=== PATIENT | female | born 2000 | race Two or more races ===

== ENCOUNTER 2018-10-09 16:45 | Outpatient (CLI) | payer SELFPAY ==
[2018-10-09 17:23] LABS: APPEARANCE,URINE SLIGHTLY-CLOUDY; BILIRUBIN,URINE NEGATIVE (NEGATIVE); COLOR,URINE YELLOW; GLUCOSE, URINE NEGATIVE (NEGATIVE); KETONES,URINE NEGATIVE (NEGATIVE); LEUKOCYTE ESTERASE,URINE NEGATIVE (NEGATIVE); NITRITE,URINE NEGATIVE (NEGATIVE); PROTEIN,URINE NEGATIVE (NEGATIVE); URINE SPECIFIC GRAVITY 1.021
[2018-10-09 17:39] LABS: URINE AMPHETAMINES SCREEN NEGATIVE; URINE BARBITURATES SCREEN NEGATIVE; URINE BENZODIAZEPINES SCREEN NEGATIVE; URINE COCAINE SCREEN NEGATIVE; URINE MARIJUANA (THC) SCREEN NEGATIVE; URINE METHADONE SCREEN NEGATIVE; URINE PHENCYCLIDINE SCREEN NEGATIVE
--- NOTE | 2018-10-09 18:50 | L&D Progress Notes ---
PROGRESS NOTES Datetime Report Generated by CPN: 10/09/2018 18:50 PROGRESS NOTE Impression Other: IUP @ 24w5d, Cramping, Light headed Procedures: Sterile Vag Exam Procedures- Other: Genprobe, Bedside u/s Plan Other: Anatomy U/s w/ Cervical Length Vital Signs : Reviewed; Within Normal Limits Vital Signs Comments: Bedside u/s; Fundal Height U-2 Comment: 18y G1 @ 24w5d by LMP and pt states consistent with a 12wk u/s, no records to confirm this but a good story. Records reviewed on patient's phone from my chart from [facility] noting that she had first trimester testing at 13wks with negative screen for Tri-21 and Tri-18. Patient presents today with complaints of cramping earlier in the day and decreased movement. Patient has since felt baby move since being on L_D. Pt denies any mucoid vaginal discharge, rectal pressure, LOF or vaginal spotting or bleeding. Patient's last visit with a provider was Aug. in [place]. Patient has been down from [place] for the last 3 weeks as patient is here with her . Patient states she will deliver in [place]. Patient's is active but pt is not on his [facility] yet. Pt desires to deliver at [place] as it is way closer to her home. Labs reviewed from patient's my chart on her phone and all labs are good except RPR not completed. Patient also has not had her anatomy ultrasound. Patient has not established care with provider in this area yet. Patient is not currently having complaints. Vaginal swabl collected. Speculum exam shows a slightly friable cervix. Discussed with patient that I am concerned that she has a significantly lagging fundal height without anatomy u/s and questionable cervical exam, concerning for cervical shortening. Will obtain official anatomy u/s and transvaginal cervical length and dictate follow up care based on results. VAGINAL EXAM Dilatation: cl Effacement: 65 Station: -2 Contractions: None LAST VAGINAL EXAM-NURSING Contractions: TOCO applied FETUS A FHR - Baseline: 140 Monitoring: External US : 24w5d SIGNATURE SIGNATURE: [id number] Signature: with User ID: [email or web address]
--- NOTE | 2018-10-09 19:32 | RADIOLOGY REPORT (SQ) ---
EXAM DESCRIPTION: U/S OB 14+ TA/1 GEST W/DOPPLER COMPLETED DATE/TIME: 10/09/2018 7:14 pm REASON FOR STUDY: full anatomy, questionable dates and limited care COMPARISON: None. TECHNIQUE: Static and Dynamic grayscale imaging performed of gravid uterus using transabdominal appr oach. Additional selected color Doppler and spectral images recorded. All stored on PACS. LIMITATIONS: Limited anatomy evaluation. FINDINGS: FETUSES SEEN:1 EGA: 24 weeks 0 days Calculated using BPD,FL,HC,AC documented on images. No significant discrepancy with clinical dates. ETTA: 01/29/2019 EFW: 588 g grams PERCENTILE: 26 SHANIQUA: 11.1 cm PLACENTA: Posterior low-lying placenta, tip approximately 1.8 cm from the internal cervical os. PRESENTATION: Cephalic. ANATOMY: HEART RATE: 158 beats per minute. FOUR CHAMBER HEART: Visualized. THREE VESSEL CORD: Yes. CORD INSERTION: Visualized. KIDNEYS AND BLADDER: Visualized. Appear normal. STOMACH: Visualized. Appears normal. SPINE: Incompletely visualized. BRAIN AND LATERAL VENTRICLES: Poorly visualized. OTHER: No other significant finding. MATERNAL ADNEXA: Maternal ovaries not visualized. CERVICAL LENGTH: 4.3 center Closed. OTHER: No other significant finding. IMPRESSION: LIVING INTRAUTERINE . ESTIMATED GESTATIONAL AGE 24 weeks 0 days. Posterior low-lying placenta, tip approximately 1.8 cm from the internal cervical os. Poorly visualized intracranial anatomy. Incompletely visualized spine -pelvis. Trimester of : Second trimester - 13 weeks 1 day to 27 weeks 6 days. TECHNICAL DOCUMENTATION: JOB ID: [id number] [id number] 2010 [employer]- All Rights Reserved Reading location - IP/workstation name: [email or web address]
[2018-10-09 19:42] LABS: CHLAM PCR NOT DETECTED (NOT DETECT); GON PCR NOT DETECTED (NOT DETECT)
== END 2018-10-09 19:25 | disposition home or self-care (01) ==
LOC: LC 16:45
PROVIDERS: ATTEND Obstetrics & Gynecology
DX: O47.02 False labor before 37 completed weeks of gestation, second trimester (principal); O26.892 Other specified pregnancy related conditions, second trimester; R10.9 Unspecified abdominal pain; R42 Dizziness and giddiness; Z3A.24 24 weeks gestation of pregnancy
CPT/HCPCS: 36415; 76805; 80307; 81001; 86592; 87086; 87491; 87591; 93976